=== PATIENT | female | born 1965 | race American Indian/Alaskan Native ===

== ENCOUNTER 2020-12-04 11:49 | Emergency (ER) | payer BC, MEDICAID, OTHER ==
--- NOTE | 2020-12-04 12:03 | EDM.PDOC ---
ED HPI GENERAL MEDICAL PROBLEM - General Chief Complaint: Upper Extremity Injury/Pain Stated Complaint: DISLOCATED SHOULDER Time Seen by Provider: 12/04/20 12:03 Source of Information: Reports: Patient, Old Records, RN, RN Notes Reviewed History Limitations: Reports: No Limitations - History of Present Illness INITIAL COMMENTS - FREE TEXT/NARRATIVE: Pt presents to ER by POV with c/o right shoulder injury sustained at approx. 1030HRS today when she tripped fell at school. Pt states that she believes the shoulder dislocated, popping out of place, then popped back into place. She denies head or neck injury. Admits to mild generalized "soreness" but no other focal injuries. No prior Hx of shoulder dislocation or fractures. Pt rates the pain 7/10. The pain is alleviated with the shoulder in a sling. Movement of the right shoulder aggravates the pain. Onset: Today, Sudden Onset Date: 12/04/20 Onset Time: 10:30 Duration: Constant Location: Reports: Upper Extremity, Right Quality: Reports: Ache Severity: Severe Right Shoulder Pain Score (Numeric/FACES): 3 - Related Data Allergies Allergy/AdvReac Type Severity Reaction Status Date / Time ibuprofen Allergy Airway Verified 12/04/20 12:09 Tightness naproxen sodium [From Aleve] Allergy Airway Verified 03/24/14 06:16 Tightness Sulfa (Sulfonamide Allergy Headache Verified 03/24/14 06:16 Antibiotics) Home Meds: Home Meds FLUoxetine [PROzac] 60 mg PO DAILY 03/24/14 [History] Insulin Detemir [Levemir] 30 unit SQ BEDTIME 03/24/14 [History] Lisinopril 5 mg PO DAILY 03/24/14 [History] Novalog 5 units SUBCUT TID 03/24/14 [History] Vitamin B Complex with C [Super B Complex With C] 1 cap PO DAILY 03/24/14 [History] Fexofenadine [Glory] 07/15/15 [History] Insulin Detemir [Levemir] 10 units SQ ASDIRECTED 07/15/15 [History] Levalbuterol Tartrate [Xopenex HFA] 07/15/15 [History] Mometasone/Formoterol [Dulera 200 MCG/5 MCG] 07/15/15 [History] Montelukast [Singulair] 10 mg PO BEDTIME 07/15/15 [History] atorvaSTATin [Lipitor] 10 mg PO BEDTIME 07/15/15 [History] Past Medical History HEENT History: Reports: Allergic Rhinitis Cardiovascular History: Reports: Hypertension Respiratory History: Reports: Asthma Psychiatric History: Reports: Depression Endocrine/Metabolic History: Reports: Diabetes, Type II, IDDM Social & Family History - Family History Family Medical History: No Pertinent Family History - Living Situation & Occupation Living situation: Reports: with Family Review of Systems - Review of Systems Review Of Systems: Comprehensive ROS is negative, except as noted in HPI. ED EXAM, GENERAL - Physical Exam Exam: See Below Exam Limited By: No Limitations General Appearance: Alert, WD/WN, No Apparent Distress Eye Exam: Bilateral Eye: Normal Inspection Nose: Normal Inspection, No Blood Throat/Mouth: Normal Lips, Normal Voice, No Airway Compromise Head: Atraumatic, Normocephalic Neck: Full Range of Motion, Other (Mild paraspinal soft tissue/muscular tenderness) Respiratory/Chest: No Respiratory Distress, Lungs Clear, Normal Breath Sounds, No Accessory Muscle Use, Chest Non-Tender Cardiovascular: Normal Peripheral Pulses, Regular Rate, Rhythm Back Exam: Normal Inspection, Full Range of Motion Extremities: Normal Capillary Refill, Arm Pain (Right shoulder, no visible swelling, redness, bruising, or deformity, ROM limited due to pain). No: Joint Swelling Neurological: Alert, Oriented, CN II-XII Intact, Normal Cognition, Normal Gait, No Motor/Sensory Deficits Psychiatric: Normal Affect, Normal Mood Skin Exam: Warm, Dry, Intact, Normal Color, No Rash Course - Vital Signs Last Recorded V/S: Last Vital Signs Temp 97.4 F 12/04/20 12:05 Pulse 70 12/04/20 12:05 Resp 16 12/04/20 12:05 BP 135/70 12/04/20 12:05 Pulse Ox 98 12/04/20 12:05 - Orders/Labs/Meds Orders: Active Orders 24 hr Category Date Time Status DME for Discharge [COMM] Routine Oth 12/04/20 12:32 Ordered - Radiology Interpretation Free Text/Narrative:: XR Right Shoulder: no acute fracture or dislocation per Rad. report. - Re-Assessments/Exams Free Text/Narrative Re-Assessment/Exam: 12/04/20 12:43 Rt shoulder sling applied by RN. Departure - Departure Time of Disposition: 12:43 Disposition: Home, Self-Care 01 Condition: Good Clinical Impression: Fall from ground level Right shoulder strain Qualifiers: Encounter type: initial encounter Qualified Code(s): S46.911A - Strain of unspecified muscle, fascia and tendon at shoulder and upper arm level, right arm, initial encounter - Discharge Information *PRESCRIPTION DRUG MONITORING PROGRAM REVIEWED*: Not Applicable *COPY OF PRESCRIPTION DRUG MONITORING REPORT IN PATIENT JENNIFER: Not Applicable Instructions: Shoulder Sprain Forms: ED Department Discharge Additional Instructions: Rx: [place] 5mg/325mg Wear right shoulder sling for 3 to 5 days. Remove several times a day to maintain range of motion in the shoulder, and remove to sleep and shower. Rest and ice packs to right shoulder to reduce pain. Follow up in clinic in 5 to 7 days for recheck. Sepsis Event Note (ED) - Focused Exam Vital Signs: Vital Signs Temp Pulse Resp BP Pulse Ox 12/04/20 12:05 97.4 F 70 16 135/70 98 - My Orders Last 24 Hours: My Active Orders 12/04/20 12:32 DME for Discharge [COMM] Routine - Assessment/Plan Last 24 Hours: My Active Orders 12/04/20 12:32 DME for Discharge [COMM] Routine
[2020-12-04 12:06] VITALS: BP 135/70; PULSE 70
--- NOTE | 2020-12-04 12:23 | CR ---
EXAMINATION: Shoulder Comp Rt SEX: Female AGE: 55 years CLINICAL HISTORY: 55-year-old male right shoulder injury (fall). Interpretation (3 views): Negative. Homogeneous normal bone mineral density. Normal spacing between the acromion process scapula the head of the humerus. No sign of pathologic skeletal lesion. Normal right clavicle. No fracture, acromioclavicular separation, or glenohumeral dislocation right shoulder. No fractures of the underlying ribs upper right hemithorax. Right lung apex clear. No pneumothorax.
== END 2020-12-04 12:57 | disposition home or self-care (01) ==
LOC: DL.ED 11:49
DX: S46.911A Strain of unspecified muscle, fascia and tendon at shoulder and upper arm level, right arm, initial encounter (principal); I10 Essential (primary) hypertension; J45.909 Unspecified asthma, uncomplicated; E11.9 Type 2 diabetes mellitus without complications; Z79.4 Long term (current) use of insulin; Z79.899 Other long term (current) drug therapy; Z88.6 Allergy status to analgesic agent; Z88.8 Allergy status to other drugs, medicaments and biological substances; Z88.2 Allergy status to sulfonamides; W18.30XA Fall on same level, unspecified, initial encounter
CPT/HCPCS: 73030-RT; 99283; 99283-25